=== PATIENT | female | born 2000 | race Caucasian/White ===

== ENCOUNTER 2024-06-07 18:19 | Emergency (ER) | payer OTHER, SELFPAY ==
[2024-06-07] VITALS (12 sets, daily range): BP systolic 92–125; BP diastolic 61–72; PULSE 63–99; RESP 15–27; TEMP 36.7–36.9; O2SAT 98–100; BMI 20.8
--- NOTE | ~2024-06-07 | CT_ITS ---
CLINICAL HISTORY: Thrown off horse CT cervical spine without contrast Comparison: None Findings: There is mild reversal of the normal cervical lordosis. No cervical spondylolisthesis identified. No acute fractures or dislocations. No significant degenerative endplate changes at the cervical spine. Impression: 1. No acute fracture or dislocation injury identified at the cervical spine. This document has been electronically signed by: Zack Jean-Baptiste MD on 06/07/2024 21:30:53
--- NOTE | ~2024-06-07 | CT_ITS ---
CLINICAL HISTORY: thrown off horse CT chest with contrast Comparison: None Findings: Normal heart,size. No significant pericardial effusion. No thoracic aorta aneurysm or dissection identified. Limited evaluation of the aortic root and ascending thoracic aorta related to motion artifact at these sites.. No focal pulmonary consolidation, pneumothorax, or pleural effusion. No acute fractures. Impression: 1. No acute traumatic injury of the chest identified. This document has been electronically signed by: Zack Jean-Baptiste MD on 06/07/2024 21:35:41
--- NOTE | ~2024-06-07 | CT_ITS ---
CLINICAL HISTORY: flew off horse. abdominal pain. CT abdomen and pelvis with contrast Comparison: None Findings: Irregular area of decreased enhancement identified within the spleen, suggesting partial devascularization in the setting of a grade IV splenic injury. A small amount of perisplenic fluid is present. The gallbladder and solid organs are otherwise within normal limits. No hydronephrosis or hydroureter. No bowel obstruction, pneumoperitoneum, or pneumatosis. Small volume free fluid identified at the lower abdomen. Pelvic contents unremarkable. No bladder wall thickening. Normal appendix. No acute fracture visualized. IMPRESSION: 1. Findings suggesting a grade IV splenic injury with small volume free fluid intra-abdominally, most prominent at the lower abdomen. This is most consistent with blood given the splenic injury. This document has been electronically signed by: Zack Jean-Baptiste MD on 06/07/2024 21:06:52
--- NOTE | ~2024-06-07 | CT_ITS ---
CLINICAL HISTORY: thrown off horse CT head without contrast Comparison: None Findings: No intracranial mass, midline shift, hydrocephalus, or acute hemorrhage. Visualized paranasal sinuses and mastoid air cells appear clear. No acute skull fracture. Impression: 1. No acute intracranial abnormality. No acute intracranial hemorrhage. This document has been electronically signed by: Zack Jean-Baptiste MD on 06/07/2024 21:27:37
--- NOTE | 2024-06-07 18:48 | ED_ITS ---
HPI - General Adult General Chief complaint: Trauma Stated complaint: abd pain/fell of horse Time Seen by Provider: 06/07/24 19:45 Source: patient Mode of arrival: ambulatory Limitations: no limitations History of Present Illness ED Provider: HPI narrative: Patient fell off the horse while riding at 17:30 landed on her stomach during the helmet denied any head injury complaining of pain in left upper abdomen and lower abdomen no nausea no vomiting not on any blood thinner no loss of consciousness blood pressure on arrival 92/61 heart rate of 63 repeat blood pressure 106/63 heart rate 78 Related Data Allergies Allergy/AdvReac Type Severity Reaction Status Date / Time No Known Allergies Allergy Verified 06/07/24 18:48 Review of Systems 2 Review of Systems: Yes all other systems are reviewed and are negative [facility] Past Medical History Medical History (Updated 06/08/24 @ 00:00 by Padmini Leahy) Depression Social History Social History Advance Directives: No Advance Directives Information Provided: No Do you have a plan to hurt others: No Plan Physical Exam ED Vital Signs: Vital Signs - 24 hr 06/07/24 18:45 06/07/24 18:50 06/07/24 19:13 Temperature 98.5 F Pulse Rate 63 78 78 Respiratory Rate 16 15 16 Blood Pressure 92/61 104/65 106/63 Pulse Oximetry 100 98 Oxygen Delivery Method Room Air Room Air 06/07/24 21:21 06/07/24 21:24 06/07/24 21:30 Temperature Pulse Rate 82 72 Respiratory Rate 18 Blood Pressure 104/65 111/70 Pulse Oximetry 100 Oxygen Delivery Method Room Air Room Air 06/07/24 21:39 06/07/24 21:48 06/07/24 21:55 Temperature 98.1 F 98.2 F Pulse Rate 79 88 84 Respiratory Rate 24 H 17 22 H Blood Pressure 107/65 107/65 121/72 Pulse Oximetry Oxygen Delivery Method 06/07/24 21:59 06/07/24 22:11 06/07/24 22:34 Temperature 98.2 F Pulse Rate 79 99 99 Respiratory Rate 27 H 20 20 Blood Pressure 113/66 125/64 125/64 Pulse Oximetry 98 Oxygen Delivery Method Room Air BMI result Body Mass Index 20.8 Appearance: Alert. Oriented X3. No acute distress. Eyes: PERRLA, No Nystagmus ENT: Pharynx normal. Oral Mucosa moist Neck: Normal inspection. Neck supple. No midline tenderness slight tenderness in the left sternocleidomastoid muscle CVS: Normal heart rate and rhythm. Pulses normal. Respiratory: No respiratory distress. Equal air entry bilateral, no wheezing/rales/rhonchi Abdomen: Soft and tenderness left upper quadrant Bowel sounds are present, no mass palpable, no CVA tenderness Skin: Skin warm and dry. Normal skin color. Normal skin turgor. Extremities: No lower extremity edema. No calf tenderness Neuro: Oriented X 3. No motor deficit. No sensory deficit.No cerebellar signs , cranial nerves II-XII intact Course Course Course Narrative: RME: 23 yold female presents to the ED for abaominal pain. Patient was thrown off the horse and landed immeidatley on her stomach and since than has had pain. patient looks paler than usual as per firend. patient had seatbelt on. Patient brought in to the ED. trauma Scans ordered. Medications Administered Discontinued Medications Generic Name Dose Route Start Last Admin Trade Name Freq PRN Reason Stop Dose Admin Sodium Chloride 1,000 mls @ 999 mls/hr 06/07/24 21:20 06/07/24 21:24 Ns IV 06/07/24 22:20 999 mls/hr .Q1H1M ONE Administration Iohexol 85 ml 06/07/24 20:02 06/07/24 20:02 Iohexol 350 Mg/Ml 100 Ml Infus..Btl IV 06/07/24 20:03 85 ml ONCE ONE Administration Procedures FAST Exam FAST Exam 1: Fluid in Morison's pouch: No Fluid in Splenorenal Junction: Yes Fluid around bladder, Transverse view: Yes Fluid around bladder, Sagittal view: Yes Fluid in Pericardial Sac: No Gross Wall Motion Abnormality: No Study normal for this patient: No Medical Decision Making Medical Decision Making MDM Narrative: Patient is status post fall from the horse with mainly the abdominal injury CT scan of the abdomen done which showed grade 4 splenic injury will small volume free fluid in the pelvis area [address] Calderón trauma center [facility] accepted the patient for trauma transfer 2123 blood pressure 104/65 heart rate 82 saturating 100% at room air infusing 1 L of normal saline will get 1 unit of PRBC emergency transfusion Differential Diagnosis Differential Diagnoses: The differential diagnosis associated with the presentation includes Admission/Observation Consideration of admission/observation: Escalation of care including admission/observation considered Lab Data MDM Lab Attestation statement: I reviewed the patient's lab results. 06/07/24 19:06 06/07/24 19:06 Labs: Lab Results 06/07/24 06/07/24 Range/Units 19:06 21:52 WBC 11.1 H (4.8-10.8) X10*3/uL RBC 4.32 (4.20-5.50) X10*6/uL Hgb 12.5 (12.0-16.0) g/dl Hct 36.7 L (37.0-47.0) % MCV 85.0 (80.0-98.0) fL MCH 28.9 (27.0-33.0) pg MCHC 34.1 (31.0-35.0) g/dl RDW 13.0 (11.0-16.0) % Plt Count 251 (160-400) X10*3/uL MPV 9.1 L (9.4-12.3) fL Immature Gran % (Auto) 0.4 (0.0-0.4) % Neut % (Auto) 71.9 (45-73) % Lymph % (Auto) 19.2 L (20-40) % [place] % (Auto) 7.5 (2-11) % Eos % (Auto) 0.6 (0-4) % Baso % (Auto) 0.4 (0-2) % Lymph # (Auto) 2.1 (1.2-4.9) X10*3/uL [place] # (Auto) 0.8 (0.1-1.2) X10*3/uL Eos # (Auto) 0.1 (0.0-0.4) X10*3/uL Baso # (Auto) 0.0 (0.0-0.2) X10*3/uL Abs Immat Gran (auto) 0.04 H (0.00-0.03) X10*3/uL Absolute Neuts (auto) 8.0 (2.0-8.3) x10*3/uL Absolute Nucleated RBC 0.000 (0.0-0.012) X10*3/uL Nucleated RBC % (auto) 0.0 (0.0-0.2) /100WBC Sodium 142 (135-145) mmol/L Potassium 4.3 (3.3-5.1) mmol/L Chloride 109 H (96-108) mmol/L Carbon Dioxide 24 (22-29) mmol/L Anion Gap 13 (12-20) BUN 12 (9-16) mg/dL Creatinine 0.77 (0.5-1.4) mg/dL Estim Creat Clear Calc 102.5 Estimated GFR > 60 Random Glucose 121 H (60-115) mg/dL Calcium 9.4 (8.4-10.2) mg/dL Total Bilirubin 0.5 (0.0-1.0) mg/dL AST 34 H (5-31) U/L ALT 17 (0-31) U/L Alkaline Phosphatase 54 (39-117) U/L Total Protein 7.5 (6.5-8.0) g/dL Albumin 4.5 (3.5-5.0) g/dL Beta HCG, Quant < 2 mIU/mL Blood Type O Positive Antibody Screen NEGATIVE Crossmatch See Detail Independent Interpretation I performed an independent interpretation of an: CT Scan Radiology Impression Discussion of test interpretation with radiology: I have reviewed the radiologist's reading. Radiologist Impression: [place] [id number] CT Scan Report Signed with Sravan Patient: Jessica Madrid MR#: [id number] : 2000 Acct:[id number] Age/Sex: 23 / F ADM Date: 06/07/24 Loc: .ED Attending Dr: Ordering Physician: Jhon Forde Date of Service: 06/07/24 Procedure(s): CT abdomen pelvis w IV con Accession Number(s): [id number] cc: Jhon Forde; Physician,Unknown ~ Report Number: [id number]: Total DLP = 646.71 mGy-cm ADDENDUMThis document has been electronically signed by: Zack Jean-Baptiste MD on 06/07/2024 21:06:52 ADDENDUM: This report was discussed with Dr. Dai on Jun 07, 2024 21:10:00 EDT. This document has been electronically signed by: LinasohailBirgit on 06/07/2024 21:10:50 Addendum Dictated By: Zack Jean-Baptiste MD Addendum Signed By: <Electronically signed by Zack Jean-Baptiste MD in [place]> 06/07/242111 Addendum Cosigned By: DD/ /24/2105 TD/TT: 06/07/2409/24/2109 CLINICAL HISTORY: flew off horse. abdominal pain. CT abdomen and pelvis with contrast Comparison: None Findings: Irregular area of decreased enhancement identified within the spleen, suggesting partial devascularization in the setting of a grade IV splenic injury. A small amount of perisplenic fluid is present. The gallbladder and solid organs are otherwise within normal limits. No hydronephrosis or hydroureter. No bowel obstruction, pneumoperitoneum, or pneumatosis. Small volume free fluid identified at the lower abdomen. Pelvic contents unremarkable. No bladder wall thickening. Normal appendix. No acute fracture visualized. IMPRESSION: 1. Findings suggesting a grade IV splenic injury with small volume free fluid intra-abdominally, most prominent at the lower abdomen. This is most consistent with blood given the splenic injury. This document has been electronically signed by: Zack Jean-Baptiste MD on 06/07/2024 21:06:52 Findings: No intracranial mass, midline shift, hydrocephalus, or acute hemorrhage. Visualized paranasal sinuses and mastoid air cells appear clear. No acute skull fracture. Impression: 1. No acute intracranial abnormality. No acute intracranial hemorrhage. This document has been electronically signed by: Zack Jean-Baptiste MD on 06/07/2024 21:27:[address] [address] [address] Scan Report Signed Patient: Jessica Madrid MR#: [id number] : 2000 Acct:[id number] Age/Sex: 23 / F ADM Date: 06/07/24 Loc: HO.ED Attending Dr: Ordering Physician: Jhon Forde Date of Service: 06/07/24 Procedure(s): CT cervical spine wo IV con Accession Number(s): [id number] cc: Jhon Forde; Physician,Unknown ~ Report Number: [id number]: Total DLP = 424.50 mGy-cm CLINICAL HISTORY: Thrown off horse CT cervical spine without contrast Comparison: None Findings: There is mild reversal of the normal cervical lordosis. No cervical spondylolisthesis identified. No acute fractures or dislocations. No significant degenerative endplate changes at the cervical spine. Impression: 1. No acute fracture or dislocation injury identified at the cervical spine. This document has been electronically signed by: Zack Jean-Baptiste MD on 06/07/2024 21:30:[address] [address] [address] Scan Report Signed Patient: Jessica Madrid MR#: [id number] : 2000 Acct:[id number] Age/Sex: 23 / F ADM Date: 06/07/24 Loc: HO.ED Attending Dr: Ordering Physician: Jhon Forde Date of Service: 06/07/24 Procedure(s): CT chest w IV con Accession Number(s): [id number] cc: Jhon Forde; Physician,Unknown ~ Report Number: [id number]: Total DLP = 337.81 mGy-cm CLINICAL HISTORY: thrown off horse CT chest with contrast Comparison: None Findings: Normal heart,size. No significant pericardial effusion. No thoracic aorta aneurysm or dissection identified. Limited evaluation of the aortic root and ascending thoracic aorta related to motion artifact at these sites.. No focal pulmonary consolidation, pneumothorax, or pleural effusion. No acute fractures. Impression: 1. No acute traumatic injury of the chest identified. This document has been electronically signed by: Zack Jean-Baptiste MD on 06/07/2024 21:35:41 Critical Care Time Critical Care Time Critical Care Time: Yes Total Critical Care Time: 55 Attestation: The patient was critically ill with a high probability of imminent or life threatening deterioration. I spent greater than ?60??minutes of discontinuous time evaluating the patient,delivering critical care at the bedside, discussing and evaluating pertinent data with consultants. Critical care time does not include time spent performing separately billable procedures or teaching. Total time spent performing critical care was ?55??minutes. Discharge Plan Discharge Clinical Impression: Laceration of spleen Patient Disposition: [facility] Transfer Details: [facility] Trauma Dr. Calderón Interventions: Acute Care Transfer Worksheet (ED) Last Done: 06/07/24 22:34 Discharge Date/Time: 06/07/24 22:35 Print Language: Armenian
[2024-06-07 19:08] LABS: MANUAL DIFF FLAG NO
[2024-06-07 19:10] LABS: Basophils Percent Auto 0.4 % (0-2); Eosinophils Absolute Auto 0.1 X10*3/uL (0.0-0.4); Eosinophils Percent Auto 0.6 % (0-4); Hematocrit 36.7 % (37.0-47.0); Hemoglobin 12.5 g/dl (12.0-16.0); Imm Gran Abs Auto 0.04 X10*3/uL (0.00-0.03); Imm Gran Pct Auto 0.4 % (0.0-0.4); Lymphocytes Absolute Auto 2.1 X10*3/uL (1.2-4.9); Lymphocytes Percent Auto 19.2 % (20-40); Mean Corpuscular HGB Conc 34.1 g/dl (31.0-35.0); Mean Corpuscular Hemoglobin 28.9 pg (27.0-33.0); Mean Platelet Volume 9.1 fL (9.4-12.3); Monocytes Absolute Auto 0.8 X10*3/uL (0.1-1.2); Monocytes Percent Auto 7.5 % (2-11); Neutrophils Percent Auto 71.9 % (45-73); Platelet Count 251 X10*3/uL (160-400); Red Blood Count 4.32 X10*6/uL (4.20-5.50); White Blood Count 11.1 X10*3/uL (4.8-10.8)
--- OUTSIDE RECORDS SUMMARY | 2024-06-07 19:20 | XMS_ITS | Data Portability ---
Author Organization [place] - .[facility], [facility] Address [address] [place] [address] Care Team Providers Care Case Operator Name Role Phone NELIDA SHEN Primary Care Provider NYASIA VELA Marriage And Family Teacher [phone] Assessment Encounter Date Assessment Date Assessment LastModified by Organization Details LastModified Time 07/23/2021 07/23/2021 Patient with ectatic vessel right septum cauterized today. She did become mildly vasovagal but did not pass out. She will start saline nasal gel. She was also given samples of bleed cease. She will follow-up if the bleeding continues. PLEASE NOTE: This report was generated with voice recognition software. As a result there is the possibility of typographical or content errors. These can be simple errors, such as a misspelling of a word or name, however on occasion the errors may change the meaning of a sentence or the conclusions of the report. Every effort is made to detect these errors, including proof reading, but errors may be present in the final version of this report.* [email or web address] Not available 07/23/2021 16:18:06 07/25/2021 07/25/2021 Patient with lower lid blepharitis after nasal cauterization. I placed her on bacitracin ointment recommend warm compresses as well. She understands that should the blepharitis worsen she will need to see Ophthalmology. PLEASE NOTE: This report was generated with voice recognition software. As a result there is the possibility of typographical or content errors. These can be simple errors, such as a misspelling of a word or name, however on occasion the errors may change the meaning of a sentence or the conclusions of the report. Every effort is made to detect these errors, including proof reading, but errors may be present in the final version of this report.* [email or web address] Not available 07/25/2021 15:03:49 Plan of Treatment Reminders Order Date Submit Date Provider Last Modified By Organization Details Last Modified Time Details Appointments None recorded. Lab lipid panel, serum 2020 021 [facility], [address] [place] [address], [id number], 22:43:31 CBC w/ auto diff 2020 021 [facility], [address] [place] [address], [address], 21:01:43 vitamin D, 25-hydroxy, total, serum 2020 021 [facility], [address] [place] [address], [id number], 22:22:06 TSH, serum or plasma 2020 021 [facility], [address] [place] [address], [address], 22:43:33 Referral gynecologis t referral 2020 021 [email or web address] Not available 19:24:58 Procedures None recorded. Surgeries None recorded. Imaging None recorded. Medication Orders bacitracin 500 unit/gram eye ointment 2021 023 [facility], [address] [place] [address], [address], 3 13:16:34 Patient TargetsNo targets recorded. Patient Instructions Encounter Date Encounter Id Patient Instructions Last Modified By Organization Details Last Modified Time 05/11/2019 [id number] hearing screening* Not availa ble 05/11/2019 18:42:10 visual acuity* Not available 0 05/11/2019 18:42:10 [facility] parent handout 15 to 17 year visits Not available 05/11/2019 18:42:10 How to Help Your Child Be More Physically Active [email or web address] Not available 05/11/2019 18:42:10 Following the [employer] Food Guide for Children: Care Instructions Not available 05/11/2019 18:42:10 child safety: ca re instructions Not available 05/11/2019 18:42:10 -Continue to eat 3 well balanced meals a day. In addition, strive to take in 3-4 servings of Dairy a day. If this is not possible then a supplement with Calcium/Vitamin D may be needed. Your goal should be a total daily intake of Calcium of 1300 mg/day. - Incorporate exercise at least 3-4 times a week for at least 60 minutes. This does not have to be consecutive but may be broken up throughout the day. - Maintain healthy supportive relationships with family and friends. Avoid risk taking behaviors. Use bike helmets consistently, check yourself for ticks every night, use sunscreen and insect repellent. Do not engage in bullying and report bullying to a trusted adult. Consider involvement in the community/voluntee r groups to promote social responsibility and advocacy of others. Strive to continue family activities, as a strong family unit is protective against school dropout, mental health and good quality of life in adolescence. Be careful with online/social media use, which should be closely monitored by parents. Do not sleep with your phone in your bedroom, as this increases use of your phone and decreases the amount and quality of your sleep. Keep private things private, and be careful with postings to social media. Parents: Monitor for signs of social isolation, loss of friends or secretive behaviors, as mental illness is high in adolescence and early intervention is often the pabon to successful treatment. Please review the adolescent well visit handout under learning materials in the tasks and tools section of the patient portal. Call or portal-message our office with any questions or concerns. We are more than happy to continue your care until you are 21 years old and/or have completed college. Not available 05/11/2019 16:49:38 -Anticipatory guidance and health education topics discussed. -Immunizations reviewed and updated during the visit. Risks and benefits of vaccines discussed and current Vaccine Information Sheet provided. -Advised to schedule a yearly exam and encouraged to call the office or send a portal message with any questions or concerns that arise. - Not available 05/11/2019 16:49:46 08/31/2020 [id number] visual acuity* Not available 08/31/2020 13:36:19 hearing screening* Not availab le 08/31/2020 13:36:19 [facility] patient handout 18 to 21 year visits Not available 08/31/2020 13:36:20 -Continue to eat 3 well balanced meals a day. In addition, strive to take in 3-4 servings of Dairy a day. If this is not possible then a supplement with Calcium/Vitamin D may be needed. Your goal should be a total daily intake of Calcium of 1300 mg/day. - Incorporate exercise at least 3-4 times a week for at least 60 minutes. This does not have to be consecutive but may be broken up throughout the day. - Maintain healthy supportive relationships with family and friends. Avoid risk taking behaviors. Use bike helmets consistently, check yourself for ticks every night, use sunscreen and insect repellent. Do not engage in bullying and report bullying to a trusted adult. Consider involvement in the community/voluntee r groups to promote social responsibility and advocacy of others. Strive to continue family activities, as a strong family unit is protective against school dropout, mental health and good quality of life in adolescence. Be careful with online/social media use, which should be closely monitored by parents. Do not sleep with your phone in your bedroom, as this increases use of your phone and decreases the amount and quality of your sleep. Keep private things private, and be careful with postings to social media. Parents: Monitor for signs of social isolation, loss of friends or secretive behaviors, as mental illness is high in adolescence and early intervention is often the pabon to successful treatment. Please review the adolescent well visit handout under learning materials in the tasks and tools section of the patient portal. Call or portal-message our office with any questions or concerns. We are more than happy to continue your care until you are 21 years old and/or have completed college. [email or web address] Not available 08/31/2020 11:11:56 -Anticipatory guidance and health education topics discussed. -Immunizations reviewed and updated during the visit. Risks and benefits of vaccines discussed and current Vaccine Information Sheet provided. -Advised to schedule a yearly exam and encouraged to call the office or send a portal message with any questions or concerns that arise. patricia Not available 08/31/2020 11:48:46 03/13/2022 [id number] visual acuity* patricia Not available 03/13/2022 13:23:42 hearing screening* patricia Not availab le 03/13/2022 13:23:42 [facility] patient handout 18 to 21 year visits patricia Not available 03/13/2022 13:23:42 -Continue to eat 3 well balanced meals a day. In addition, strive to take in 3-4 servings of Dairy a day. If this is not possible then a supplement with Calcium/Vitamin D may be needed. Your goal should be a total daily intake of Calcium of 1300 mg/day. - Incorporate exercise at least 3-4 times a week for at least 60 minutes. This does not have to be consecutive but may be broken up throughout the day. - Maintain healthy supportive relationships with family and friends. Avoid risk taking behaviors. Use bike helmets consistently, check yourself for ticks every night, use sunscreen and insect repellent. Do not engage in bullying and report bullying to a trusted adult. Consider involvement in the community/voluntee r groups to promote social responsibility and advocacy of others. Strive to continue family activities, as a strong family unit is protective against school dropout, mental health and good quality of life in adolescence. Be careful with online/social media use, which should be closely monitored by parents. Do not sleep with your phone in your bedroom, as this increases use of your phone and decreases the amount and quality of your sleep. Keep private things private, and be careful with postings to social media. Parents: Monitor for signs of social isolation, loss of friends or secretive behaviors, as mental illness is high in adolescence and early intervention is often the pabon to successful treatment. Please review the adolescent well visit handout under learning materials in the tasks and tools section of the patient portal. Call or portal-message our office with any questions or concerns. We are more than happy to continue your care until you are 21 years old and/or have completed college. [email or web address] Not available 03/13/2022 12:44:11 -Anticipatory guidance and health education topics discussed. -Immunizations reviewed and up to date. Advised bivalent COVID19 booster. -Advised to schedule a yearly exam and encouraged to call the office or send a portal message with any questions or concerns that arise. Not available 03/13/2022 13:21:43 Reason for Referral Recreation Leader Referral for Ad ult health examination Referring Physician: Nelida Shen, Pediatric Medicine, Encounter Date: 08/31/2020 Results Created Date Observation Date Name Description Value Unit Range Abnormal Flag Note LastModifiedBy Organization Detail LastModifiedTime 09/01/19 21 08/31/2020 heari ng scree jessica* Unknown Analyte normal Not Available [facility] [address] [address] [place], [address], 08/31/2020 11:11:59 09/01/19 21 08/31/2020 heari ng scree jessica* Unknown Analyte normal Not Available [place] [address] [address] [place], [address], 08/31/2020 11:11:59 09/01/19 21 08/31/2020 heari ng scree jessica* Unknown Analyte normal Not Available [facility] [address] [address] [place], [address], 08/31/2020 11:11:59 09/01/19 21 08/31/2020 heari ng scree jessica* Unknown Analyte normal Not Available [place] [address] [address] [place], [address], 08/31/2020 11:11:59 09/01/19 21 08/31/2020 heari ng scree jessica* Unknown Analyte normal Not Available [place] [address] [address] [place], [address], 08/31/2020 11:11:59 09/01/19 21 08/31/2020 heari ng scree jessica* Unknown Analyte normal Not Available [facility] [address] [address] [place], [address], 08/31/2020 11:11:59 09/01/19 21 08/31/2020 heari ng scree jessica* Unknown Analyte normal Not Available [place] [address] [address] [place], [address], 08/31/2020 11:11:59 09/01/19 21 08/31/2020 heari ng scree jessica* Unknown Analyte normal Not Available [facility] [address] [address] [place] [address], [address], 08/31/2020 11:11:59 05/11/19 20 05/11/2019 visua l acuit y* R Eye Uncorrected Not Available [place] [facility] [address] [place] [address], [address], 05/11/2019 16:35:30 05/11/19 20 05/11/2019 visua l acuit y* L Eye Uncorrected 12. 5 Not Available [facility] [address] [place], [address], 05/11/2019 16:35:30 05/11/19 20 05/11/2019 heari ng scree jessica* Unknown Analyte normal Not Available [facility] [address] [address] [place], [address], 05/11/2019 16:35:29 05/11/19 20 05/11/2019 heari ng scree jessica* Unknown Analyte normal Not Available [facility] [address] [place] [address], [address], 05/11/2019 16:35:29 05/11/19 20 05/11/2019 heari ng scree jessica* Unknown Analyte normal Not Available [facility] [address] [place] [address], [address], 05/11/2019 16:35:29 05/11/19 20 05/11/2019 heari ng scree jessica* Unknown Analyte normal Not Available [facility] [address] [address] [place] [address], [address], 05/11/2019 16:35:29 05/11/19 20 05/11/2019 heari ng scree jessica* Unknown Analyte normal Not Available [place] [address], [address], 05/11/2019 16:35:29 05/11/19 20 05/11/2019 heari ng scree jessica* Unknown Analyte normal Not Available [place] [address] [place] [address], [address], 05/11/2019 16:35:29 05/11/19 20 05/11/2019 heari ng scree jessica* Unknown Analyte normal Not Available [place] [address] [place] [address], [address], 05/11/2019 16:35:29 05/11/19 20 05/11/2019 heari ng scree jessica* Unknown Analyte normal Not Available [facility] [address] [address] [place] [address], [address], 05/11/2019 16:35:29 10/11/19 21 10/10/2020 CBC white blood cells 5.3 10^3/ uL 3.3-9. 4 Not Available [facility] [address], [place], [address], 10/10/2020 21:01:43 10/11/19 21 10/10/2020 CBC red blood cells 4.37 10^6/ uL 3.87-5 .15 Not Available [facility] [address], [place], [address], 10/10/2020 21:01:43 10/11/19 21 10/10/2020 CBC hemoglobin 12.6 g/dL 11.1-1 5.0 Not Available [facility] [address] [place], [address], 10/10/2020 21:01:43 10/11/19 21 10/10/2020 CBC hematocrit 39.0 % 34.1-4 4.7 Not Available [facility] [place], [address], 10/10/2020 21:01:43 10/11/19 21 10/10/2020 CBC platelet count 233 10^3/ uL 158-38 4 Not Available [facility] [place], [address], 10/10/2020 21:01:43 10/11/19 21 10/10/2020 CBC MCV 89 fL 76-98 Not Available [facility] [place], [address], 10/10/2020 21:01:43 10/11/19 21 10/10/2020 CBC MCH 28.8 pg 23.5-3 2.8 Not Available [facility] [place] [place], [address], 10/10/2020 21:01:43 10/11/19 21 10/10/2020 CBC MCHC 32.3 g/dL 31.4-3 5.2 Not Available [facility] [place], [address], 10/10/2020 21:01:43 10/11/19 21 10/10/2020 CBC RDW-CV 13.1 % 12.1-1 5.9 Not Available [facility] [address] [place] [address], [address], 10/10/2020 21:01:43 10/11/19 21 10/10/2020 CBC neutro-segs % 41.0 % 37.0-7 3.0 Not Available [facility] [address] [place] [address], [address], 10/10/2020 21:01:43 10/11/19 21 10/10/2020 CBC lymphocytes% 46.7 % 18.0-5 1.0 Not Available [facility] [address] [place] [address], [address], 10/10/2020 21:01:43 10/11/19 21 10/10/2020 CBC monocytes% 9.0 % 4.0-12 .0 Not Available [facility] [address] [place] [address], [address], 10/10/2020 21:01:43 10/11/19 21 10/10/2020 CBC eosinophils % 2.3 % 1.0-9. 0 Not Available [facility] [address] [place] [address], [address], 10/10/2020 21:01:43 10/11/19 21 10/10/2020 CBC basophils 0.6 % 0.0-1. 0 Not Available [facility] [address] [place] [address], [address], 10/10/2020 21:01:43 10/11/19 21 10/10/2020 CBC neutrophil, absolute 2.16 10^3/ uL 1.43-6 .19 Not Available [facility] [address] [place] [address], [address], 10/10/2020 21:01:43 10/11/19 21 10/10/2020 CBC lymphocytes, absolute 2.45 10^3/ uL 1.02-3 .25 Not Available [facility] [address] [place] [address], [address], 10/10/2020 21:01:43 10/11/19 21 10/10/2020 CBC monocytes, absolute 0.47 10^3/ uL 0.23-0 .76 Not Available [facility] [address] [place] [address], [address], 10/10/2020 21:01:43 10/11/19 21 10/10/2020 CBC eosinophils, absolute 0.12 10^3/ uL 0.03-0 .51 Not Available [facility] [address] [place] [address], [address], 10/10/2020 21:01:43 10/11/19 21 10/10/2020 CBC basophils, absolute 0.03 10^3/ uL 0.01-0 .08 Not Available [facility] [address] [place] [address], [address], 10/10/2020 21:01:43 10/11/19 21 10/10/2020 VITAM IN D 25-HY DROXY vitamin D 28.1 NG/mL 30.0-1 00.0 low Not Available [facility] [address] [place] [address], [address], 10/10/2020 22:22:06 10/11/19 21 10/10/2020 LIPID PANEL cholesterol 177 mg/dL <199 Expec evelia Value s: <200 mg/dL Charmaine eable 200-2 40 mg/dL Borde rline >240 mg/dL High Risk Not Available [facility] [address] [place] [address], [address], 10/10/2020 22:43:31 10/11/19 21 10/10/2020 LIPID PANEL HDLC 69 mg/dL 40-59 high A HDL level of >=60 mg/dL is consi dered prote ctive again st heart disea se and count s as a nega tive risk facto r. Its prese nce remov es one risk facto r from the total count . Not Available [facility] [address] [place], [address], 10/10/2020 22:43:31 10/11/19 21 10/10/2020 LIPID PANEL triglyceride 53 mg/dL <149 Expec evelia Value s: <150 mg/dL Lesly l 150-1 99 mg/dL Borde rline 200-4 99 mg/dL High >=500 mg/dL Very High Not Available [facility] [address] [place], [address], 10/10/2020 22:43:31 10/11/19 21 10/10/2020 LIPID PANEL calculated LDL 97 mg/dL <130 Not Available [place] [address] [place], [address], 10/10/2020 22:43:31 10/11/19 21 10/10/2020 LIPID PANEL non-HDL 108.0 mg/dL Not Available [facility] [place], [address], 10/10/2020 22:43:31 10/11/19 21 10/10/2020 LIPID PANEL cholesterol/ HDL ratio 2.57 ratio Not Available [facility] [address] [place], [address], 10/10/2020 22:43:31 10/11/19 21 10/10/2020 LIPID PANEL LDL/HDL ratio 1.41 ratio Not Available [facility] [address] [place], [address], 10/10/2020 22:43:31 10/11/19 21 10/10/2020 TSH REFLE X FT4 TSH - reflex to FT4 1.210 uIU/m L 0.459- 4.229 Not Available [facility] [place], [address], 10/10/2020 22:43:33 03/13/19 23 03/13/2022 heari ng scree jessica* Unknown Analyte normal Not Available [facility] [address], [address], 03/13/2022 12:44:13 03/13/19 23 03/13/2022 heari ng scree jessica* Unknown Analyte normal Not Available [place] [address], [address], 03/13/2022 12:44:13 03/13/1903/13/2022 heari ng scree jessica* Unknown Analyte normal Not Available [place] [address], [address], 03/13/2022 12:44:13 03/13/19 23 03/13/2022 heari ng scree jessica* Unknown Analyte normal Not Available [place] [address], [address], 03/13/2022 12:44:13 03/13/19 23 03/13/2022 heari ng scree jessica* Unknown Analyte normal Not Available [facility] [place] [address], [address], 03/13/2022 12:44:13 03/13/19 23 03/13/2022 heari ng scree jessica* Unknown Analyte normal Not Available [place] [address], [address], 03/13/2022 12:44:13 03/13/19 23 03/13/2022 heari ng scree jessica* Unknown Analyte normal Not Available [place] [address], [address], 03/13/2022 12:44:13 03/13/19 23 03/13/2022 mirella lopez* Unknown Analyte normal Not Available [facility] [address] [place], [address], 03/13/2022 12:44:13 Result Notes None recorded. Problems Name Problem SNOMED Code Status Onset Date Resolution Date Notes Provider Name and Address Organization Details Recorded Time Injury of ankle 031471399 Completed 04/04/2015 Nelida Shen MD [address] [place], [place], [address] [place] [address], [facility] - .[facility] 6 15:15:53 Fracture of fibula 35588252 Completed 04/04/2016 Rt, 03/26/15 Nelida Shen MD [address] [place], [place], [address] [place] [address], [facility] - .[facility] 7 13:31:24 Vitamin D deficien cy 51004778 Completed 05/11/2019 Level 21.9 on 04/12/15; advised vit D 2000IU Nelida Shen MD [address] [place], [place], [address] [place] [address], [facility] - .[facility] 0 16:36:42 Seasonal allergy 023643676 Completed 08/31/2020 Nelida Shen MD [address] [place], [address] [place] [address], [facility] - .[facility] 11:44:56 Cervical lymphade nitis 0986886 Completed 201504/04/2016 Nelida Shen MD [address] [place], [place], [address] [place] [address], [facility] - .[facility] 7 13:31:14 Myopia 63118509 Completed 201604/04/2016 Nelida Shen MD [address] [place], [address] [place] [address], [place] - .[facility] 7 09:57:31 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 Nelida Shen MD [address] [place], [place], [address] [place] [address] 4, [place] .[facility] 8 16:52:15 Hypermet ropia 25315466 Active [address] Pruitt ; has glasses Nelida Shen MD [address] [place], [address] [place] [address] 4, [place] [facility] 3 13:23:38 Irritabl e bowel syndrome 56393079 Completed 201604/09/[address] Tony Hernandez GI in [facility] d with [facility] 05/08/2016- ? eosinophi lic esophagit is/ ? GERD Nelida Shen MD [address] [place], [address], [place] 8 16:52:18 Concussi on injury of brain 952143642 Completed 201611/11/2017 Nelida Shen MD [address] [place], [address], [place] [facility] 0 16:35:55 Concussi on injury of brain 637662681 Completed 201705/11/[address] Elmore and will be followed at [facility] concussio n clinic Nelida Shen MD [address] [place], [address], [place] - .[facility] 0 16:35:55 Anxiety 56104137 Completed 08/31/2020 eNlida Shen MD [address] [place], [address], [place] [facility] 11:46:30 Viral syndrome 386261638 Completed 04/04/2015 Nelida Shen MD [address] [place], [address], [place] [facility] 15:15:53 Acute pharyngi tis 887932529 Completed 04/04/2015 Nelida Shen MD [address] [place], [address] [place] [address] 4, [place] .[facility] 15:15:53 Generali zed anxiety disorder 20201589 Active [address] Andi han and [facility] for therapy; on Sertralin e 150mg Nelida Shen MD 1 [place], [place], [address] [place] [address], [place] - .[facility] 11:46:28 Problem Notes None recorded. Procedures Surgical History Date Name Laterality Status Provider Name and Address Organization Details Recorded Time 07/24/19 22 Control Nasal Hemorrhage, Simple completed Nyasia Vela MD 1 [place], [place], [address] [place] [address], [facility] - .[facility] 07/23/2021 16:16:27 12/10/19 18 SCAT3 Concussion Questionnaire completed Kia Starr APN 1 [place], [place], [address] [place] [address], [facility] - .[facility] 12/09/2017 09:55:40 11/26/19 17 Concussion Questionnaire completed Nelida Shen MD 1 [place], [address], [facility] - .[facility] 11/25/2016 16:43:07 11/20/19 17 Concussion Questionnaire completed Nelida Shen MD 1 [place], [address], [facility] - .[facility] 11/19/2016 17:23:06 Imaging Results None recorded. Procedure Notes None recorded. Medical Equipment None Reported. Allergies No known drug allergies Medications Name Sig Start Date Stop Date Status Note LastModified by Organization Details LastModified Time bacitracin 500 unit/gram eye ointment Apply 0.24-0.5 inch to right eye 4 times a day for 7 days 03/13 completed Not Available Not Available Not Available sertraline 100 mg tablet TAKE 1 AND 1/2 TABLETS DAILY active Not Available Not Available No t Available hyoscyamine sulfate 0.125 mg tablet 04/09 completed Not Available Not Available Not Available tobramycin 0.3 % eye drops INSTILL 2 DROPS IN THE RIGHT EYE EVERY FOUR HOURS WHILE AWAKE FOR 7 DAYS 03/13 completed Not Available Not Available Not Available sertraline 25 mg tablet 05/10 completed Not Available Not Available Not Available hydroxyzine HCl 25 mg tablet 04/04 completed Not Available Not Available Not Available sertraline 50 mg tablet Take 1 tablet every day by oral route. active Not Available Not Available No t Available amoxicillin 875 mg-potassiu m clavulanate 125 mg tablet Take 1 tablet twice a day by oral route for 14 days. 04/04 completed Not Available Not Available Not Available hydroxyzine pamoate 25 mg capsule 04/04 completed Not Available Not Available Not Available Vitamin D3 50 mcg (2,000 unit) capsule Take 1 capsule every day by oral route as directed. 05/10 completed Not Available Not Available Not Available Vitamin D3 100 mcg (4,000 unit) capsule Take 1 capsule 3 times a day by oral route for 90 days. 04/09 completed Not Available Not Available Not Available Flowflex COVID-19 Antigen Home Test kit USE DIRECTED 03/13 completed Not Available Not Available Not Available Vitals Date Recorded Body height Body mass index (BMI) Body mass index (BMI) Percentile per age and sex Body weight Heart rate Systolic blood pressure Diastolic blood pressure Provider Name and Address Organization Details Last Updated DateTime 2 165.1 cm 19.1 kg/m2 17 % 55954.1 2 g 54 /min 101 mm[Hg] 65 mm[Hg] Raudel LARSON - .[facility] 2 15:01:54 Date Recorded Body height Body mass index (BMI) Body mass index (BMI) Percentile per age and sex Body weight Heart rate Systolic blood pressure Diastolic blood pressure Provider Name and Address Organization Details Last Updated DateTime 2 165.1 cm 19.1 kg/m2 17 % 84780.1 2 g 75 /min 113 mm[Hg] 70 mm[Hg] Sandeep Adamson [place] - .[facility] 2 14:49:57 Date Recorded Body height Body temperature Heart rate Respiratory rate Body mass index (BMI) Percentile per age and sex Body mass index (BMI) Body weight Systolic blood pressure Diastolic blood pressure Provider Name and Address Organization Details Last Updated DateTime 3 165.1 cm 97.8 [degF] 80 /min 18 /min 41 % 21 kg/m2 12626.6 4 g 108 mm[Hg] 64 mm[Hg] Jacquelyn Mendoza [place] - .[facility] 3 12:49:03 Date Recorded Body weight Body mass index (BMI) Percentile per age and sex Body mass index (BMI) Body height Body temperature Heart rate Respiratory rate Systolic blood pressure Diastolic blood pressure Provider Name and Address Organization Details Last Updated DateTime 0 08162.1 6 g 13 % 18.3 kg/m2 165.1 cm 98.3 [degF] 72 /min 18 /min 98 mm[Hg] 72 mm[Hg] Zohreh Ellis [place] - .[facility] 0 16:22:25 Date Recorded Body height Body mass index (BMI) Percentile per age and sex Body mass index (BMI) Body weight Body temperature Heart rate Respiratory rate Oxygen saturation Oxygen saturation in Arterial blood by Pulse oximetry Systolic blood pressure Diastolic blood pressure Provider Name and Address Organization Details Last Updated DateTime 1 165.1 cm 30 % 20 kg/m2 28376.0 8 g 97.2 [degF] 88 /min 18 /min 98 % 98 % 110 mm[Hg] 68 mm[Hg] Teresa Guallpa [place] - .[facility] 1 11:12:33 Social History Question Answer Notes LastModified by Organizat ion Details LastModified Time Tobacco Smoking Status Never Smoker MARSHA Navarrete - .[facility] 03/24/2014 14:43:13 Animal Exposure? Yes Dog And 2 Cats Information not available 03/13/2022 Do You Wear A Helmet When Biking? Yes Information not available 03/13/2022 Are You Blind Or Do You Have Difficulty Seeing? No Information not available 03/13/2022 Are You Or Have You Been Involved With Bullying? No Information not available 03/13/2022 What Is Your Level Of Caffeine Consumption? None Information not available 03/13/2022 How Much Tobacco Do You Chew? None Information not available 05/11/2019 Are You Deaf Or Do You Have Serious Difficulty Hearing? No Information not available 03/13/2022 Do You Or Have You Ever Used E-cigarettes Or Vape? Never Used Electronic Cigarettes Information not available 05/11/2019 Are There Any Guns Present In Your Home? No Information not available 03/13/2022 What Is Your Home Situation? Both Parents Information not available 03/13/2022 Where Do You Live? [place] Information not available 03/13/2022 *Gender ID Female Information no t available 04/04/2015 * Gender Female Information not available 04/04/2015 *Sexual Orientation Heterosexual Information not available 05/11/2019 RISK LEVEL - Segmentation Level 5 - High-risk Chronic Dx / Complex Social Needs [email or web address] Information not available 04/21/2022 What Was The Date Of Your Most Recent Tobacco Screening? 03/13/2022 Information not available 03/13/2022 What Is Your Parents' Marital Status? Information not available 03/13/2022 Do You Have Any Pets? Yes 1 Dog, 2 Cats Information not available 03/13/2022 Pool Exposure Yes Informati on not available 03/13/2022 What Is Your Relationship Status? Single Information not available 03/13/2022 Do You Use Your Seat Belt Or Car Seat Routinely? Yes Information not available 03/13/2022 Are You Sexually Active? No Information not available 03/13/2022 Do You Have Any Siblings? Otilio 3 Yrs Younger Brother Information not available 03/13/2022 Do You Have Smoke And Carbon Monoxide Detectors In Your Home? Yes Information not available 03/13/2022 Are You Passively Exposed To Smoke? No Information not available 03/13/2022 Do You Or Have You Ever Used Smokeless Tobacco? Never Used Smokeless Tobacco Information not available 05/11/2019 How Much Tobacco Do You Smoke? No Information not available 04/04/2016 What Types Of Sporting Activities Do You Participate In? Hosreback Riding Information not available 03/13/2022 Do You Use Any Illicit Or Recreational Drugs? No Information not available 03/13/2022 Do You Use Sunscreen Routinely? Yes Information not available 03/13/2022 How Many Years Have You Smoked Tobacco? 0 Information not available 05/11/2019 Year In School College Informatio n not available 03/13/2022 Are You Currently In School? Yes Information not available 03/13/2022 Do You Or Have You Ever Used Any Other Forms Of Tobacco Or Nicotine? No strivette Information not available 07/23/2021 Sex: Female Functional Status Question Answer Note LastModified by Organization D etails LastModified Time What is your exercise level? Moderate Information not available 03/13/2022 Mental Status None recorded. Family History Relationship Description Onset Age of this Age Resolved Age Notes LastModified by Organization Details LastModified Time Mother No current problems or disability Not available 05/10 16:50:56 Maternal Grandmother Malignant tumor of lung 70 89 Not available 2019 16:52:45 Maternal Grandmother Anxiety [email or web address] Not available 0 03/13/2022 12:43:41 Maternal Grandfather Malignant lymphoma 88 [email or web address] Not available 01/2023 12:43:41 Maternal Uncle No current problems or disability [email or web address] Not available 07/03 14:49:27 Maternal Uncle No current problems or disability [email or web address] Not available 07/03 14:49:27 Paternal Grandmother Myocardial infarction [email or web address] Not available 07/03 14:49:27 Paternal Grandfather Rheumatoid arthritis [email or web address] Not available 2015 14:49:27 Brother No current problems or disability 3 yrs Otilio fernandez [email or web address] Not available 07/04/2015 14:49:27 Father Anxiety [email or web address] Not availa ble 03/13/2022 12:43:41 Medical History Condition Response Anxiety/Depression Y Obesity Y Muscle, Joint or Bone Problems Seizures/Epilepsy Y Ear or Hearing Problems Y Neurological Problems Y Gynecological History Statement/Question Response Flow Moderate Date of LMP 03/10/2022 STIs/STDs N HPV Vaccine N Duration of Flow (days) 5 Age at Menarche Current Control Method None Notes Mild cramps Frequency of Cycle (Q days) 30 Sexually Active? N Menses Monthly Y Obstetrics History GPAL:G 0 P 0 0 0 0 Immunizations Vaccine Type Date Status Note Provider Nam e and Address Organization Details Recorded Time Influenza, split virus, quadrivalent, PF 0 completed MARSHA Bello - .[facility] 04/14/2019 16:17:25 meningococcal B, recombinant 0 completed Karen Shin RN [facility] [place] - .[facility] 05/12/2019 12:37:13 meningococcal MCV4P 0 completed Karen Shin RN [facility] [place] - .[facility] 05/12/2019 12:37:14 Hep A, ped/adol, 2 dose 7 completed Not Available [facility] 10/21/2013 12:21:55 Hep A, ped/adol, 2 dose 8 completed Not Available [facility] 10/21/2013 12:21:55 Hep A, ped/adol, 2 dose 9 completed Not Available [facility] 10/21/2013 12:21:55 Hib (HbOC) 3 completed Not Available [facility] 10/21/2013 12:21:55 Hib (HbOC) 3 completed Not Available [facility] 10/21/2013 12:21:55 Hib (HbOC) 3 completed Not Available [facility] 10/21/2013 12:21:55 Influenza, split virus, trivalent, PF 6 completed Not Available [facility] 10/21/2013 12:21:55 Influenza, split virus, trivalent, PF 1 completed Not Available [facility] 10/21/2013 12:21:55 Influenza, live, trivalent, intranasal 7 completed Not Available [facility] 10/21/2013 12:21:55 Influenza, live, trivalent, intranasal 7 completed Not Available [facility] 10/21/2013 12:21:55 Influenza, live, trivalent, intranasal 8 completed Not Available [facility] 10/21/2013 12:21:55 Influenza, live, trivalent, intranasal 0 completed Not Available [facility] 10/21/2013 12:21:55 Influenza, live, trivalent, intranasal 3 completed Not Available [facility] 10/21/2013 12:21:55 pneumococcal conjugate PCV 7 2 completed Not Available [facility] 10/21/2013 12:21:55 pneumococcal conjugate PCV 7 3 completed Not Available [facility] 10/21/2013 12:21:55 pneumococcal conjugate PCV 7 3 completed Not Available [facility] 10/21/2013 12:21:55 pneumococcal conjugate PCV 7 4 completed Not Available [facility] 10/21/2013 12:21:55 DTaP, 5 pertussis antigens 2 completed Not Available [facility] 10/21/2013 12:21:55 DTaP, 5 pertussis antigens 3 completed Not Available [facility] 10/21/2013 12:21:55 DTaP, 5 pertussis antigens 3 completed Not Available [facility] 10/21/2013 12:21:55 DTaP, 5 pertussis antigens 4 completed Not Available [facility] 10/21/2013 12:21:55 DTaP, 5 pertussis antigens 7 completed Not Available [facility] 10/21/2013 12:21:55 MMR 4 completed Not Available [facility] 10/21/2013 12:21:55 MMR 7 completed Not Available [facility] 10/21/2013 12:21:55 IPV 3 completed Not Available [facility] 10/21/2013 12:21:55 IPV 3 completed Not Available [facility] 10/21/2013 12:21:55 IPV 3 completed Not Available [facility] 10/21/2013 12:21:56 IPV 7 completed Not Available [facility] 10/21/2013 12:21:56 Tdap 4 completed Not Available [facility] 10/21/2013 12:21:56 varicella 3 completed Not Available [facility] 10/21/2013 12:21:56 varicella 6 completed Not Available [facility] 10/21/2013 12:21:56 meningococcal MCV4P 4 completed Not Available [facility] 10/21/2013 12:21:56 Hep B, adolescent or pediatric 3 completed Not Available [facility] 10/21/2013 12:21:56 Hep B, adolescent or pediatric 3 completed Not Available [facility] 10/21/2013 12:21:56 Hep B, adolescent or pediatric 3 completed Not Available [facility] 10/21/2013 12:21:56 Influenza, split virus, quadrivalent, PF 0 completed MARSHA Gagnon - .[facility] 01/11/2020 12:32:06 Tdap 1 completed WENDY Black, MARSHA - .[facility] 08/31/2020 15:11:19 meningococcal B, recombinant 1 completed WENDY Black, MARSHA - .[facility] 08/31/2020 15:11:20 HPV9 6 completed Not Available [facility] 03/20/2019 04:44:51 Influenza, live, quadrivalent, intranasal 6 completed Not Available [facility] 03/20/2019 04:53:56 HPV9 6 completed Not Available [facility] 03/20/2019 05:18:27 HPV9 6 completed Not Available [facility] 03/20/2019 04:57:37 COVID-19, mRNA, LNP-S, PF, 100 mcg/0.5mL dose or 50 mcg/0.25mL dose 1 completed MARSHA Romeo - .[facility] 07/23/2021 15:00:42 COVID-19, mRNA, LNP-S, PF, 100 mcg/0.5mL dose or 50 mcg/0.25mL dose 1 completed MARSHA Romeo - .[facility] 07/23/2021 15:00:50 COVID-19, mRNA, LNP-S, PF, 100 mcg/0.5mL dose or 50 mcg/0.25mL dose 1 completed MARSHA Romeo - .[facility] 07/23/2021 15:00:59 Influenza, split virus, quadrivalent, PF 7 completed Not Available [facility] 03/20/2019 02:51:19 Influenza, live, quadrivalent, intranasal 4 completed Not Available [facility] 03/20/2019 02:55:38 Influenza, split virus, quadrivalent, PF 7 completed Not Available [facility] 03/20/2019 04:21:22 influenza nasal, unspecified formulation 2 completed Nelida Shen MD 1 [place], [address] - [facility] 03/13/2022 13:17:17 Influenza, split virus, quadrivalent, PF 8 completed Not Available [facility] 03/20/2019 03:05:54 Past Encounters Encounter ID Performer Location Encounter Start Date Encounter Closed Date Diagnosis/Indication Diagnosis SNOMED-CT Code Diagnosis ICD10 Code Diagnosis Note [id number] [facility] [place] [address] 12/28/2013 14:37:34 12/28/2013 16:41:44 Viral syndrome 634375254 Acute pharyngitis 782334083 Anxiety 10258810 Counseling 661690172 [id number] [facility] [place] [address] 03/24/2014 14:34:19 03/24/2014 15:44:15 Acute pharyngitis 931208505 Acute uppe r respiratory infection 37113005 [id number] Alexys Friend [facility] [place] [address] 11/04/2014 11:08:00 11/08/2014 13:22:58 Thumb injury 406877081 [id number] Nelida Shen MD [facility] [place] [address] 04/04/2015 09:08:46 04/04/2015 15:01:43 Well child 066121658 Z00.129 Depression screening 171 810622 Z13.89 Administra tion of viral vaccine 54694606 Z23 Administra tion of influenza vaccine 80266955 Z23 No egg allergy, no asthma, no immunocomp romised contacts Anxiety 95688530 F41.1 Fracture of fibula 47827 007 S82.831S Counseling 023681024 Z71 .89 Safety education 4774249 04 Z71.89 Exercises education, guidance, and counseling 747709335 Z71.89 Dietary ma nagement surveillance 720578985 Z71.3 Substance abuse counseling 612599815 Z71.51 [id number] Nelida Shen MD [facility] [place] [address] 06/07/2015 14:27:39 06/13/2015 10:40:38 Viral syndrome 762904997 B34.9 Cervical lymphadenitis 6682511 I88.9 Acute pharyngitis 153962 003 J02.9 Counseling 496139816 Z71 .89 [id number] Nelida Shen MD [facility] [place] [address] 07/04/2015 14:31:11 07/04/2015 15:36:12 Anxiety 23492781 F41.1 Cervical lymphadenitis 1539041 I88.9 Follow-up encounter 3909 95320 Z09 Resolved cervical lymphadeni tis Administra tion of viral vaccine 36287769 Z23 [id number] Nelida Shen MD [facility] [place] [address] 11/14/2015 14:27:50 11/14/2015 14:46:06 Active or passive immunization 141655688 Z23 [id number] Nelida Shen MD [address] [address] 04/04/2016 09:10:37 04/04/2016 15:21:05 Well child 674237933 Z00.121 Depression screening 171 405066 Z13.89 Anxiety 85894708 F41.1 Seasonal allergy 5907159 04 J30.2 Vitamin D deficiency 347 42439 E55.9 Influenza vaccine needed 8731530105 106 Z23 Failure to gain weight 95840577 R62.51 Safety education 6047202 04 Z71.89 Dietary ma nagement surveillance 011487564 Z71.3 Counseling 478007153 Z71 .89 Exercises education, guidance, and counseling 409102053 Z71.89 Substance abuse counseling 832614431 Z71.6 [id number] Nelida Shen MD [address] [address] 08/05/2016 11:05:25 08/10/2016 09:48:09 Avoidant restrictive food intake disorder 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 F50.81 Anxiety 92590277 F41.1 Failure to gain weight 93069215 R62.51 Follow-up visit 53089452 9 Z09 Wt up 3 lbs in past 4m, improving ORFID and anxiety with current medication and therapy Counseling 093034050 Z71 .89 [id number] Nelida Shen MD [address] [place] [address] 11/19/2016 15:19:18 11/25/2016 15:14:05 Concussion injury of brain 056552368 S06.0X0A Counseling 972535214 Z71 .89 Anxiety 32945225 F41.1 [id number] Nelida Shen MD [address] [address] 11/25/2016 16:21:47 11/27/2016 12:47:24 Concussion injury of brain 192604598 S06.0X0D Resolved [place] Avoidant r estrictive food intake disorder 275757998 F50.81 Follow-up visit 19943800 9 Z09 Wt up 7 lbs in past 4m, improving ORFID and improving anxiety with current medication and therapy Counseling 510992108 Z71 .89 Administra tion of influenza vaccine 82650317 Z23 Anxiety 04518191 F41.1 [id number] Nelida Shen MD [facility] [place] [address] 04/09/2017 16:02:04 04/11/2017 11:39:09 Well child 953934920 Z00.129 Anxiety 07251947 F41.1 Avoidant r estrictive food intake disorder 297534990 F50.81 Vitamin D deficiency 347 54034 E55.9 Safety education 7493774 04 Z71.89 Dietary ma nagement surveillance 359509118 Z71.3 Counseling 756720617 Z71 .89 Exercises education, guidance, and counseling 993393208 Z71.89 Substance abuse counseling 587237759 Z71.6 [id number] Nelida Shen MD [facility] [place] [address] 11/11/2017 15:01:59 11/11/2017 16:46:28 Anxiety 45274659 F41.1 Avoidant r estrictive food intake disorder 794456126 F50.81 Vitamin D deficiency 347 28113 E55.9 Screening for disorder 967281897 Z13.9 Counseling 641083646 Z71 .89 Dietary ma nagement surveillance 203450386 Z71.3 No change in weight and height inpast 7 months Administra tion of influenza vaccine 03173675 Z23 [id number] Nelida Shen MD [facility] [place] [address] 12/09/2017 09:19:19 12/09/2017 10:38:25 Concussion injury of brain 646609857 S06.0X0A -SCAT score of 19 -note for school, no sports or PE, restricted academics -will be seen in 2 days' time at [facility] concussion clinic. [id number] Nelida Shen MD [facility] [place] [address] 05/11/2019 15:38:05 05/11/2019 22:32:18 Well child 097459073 Z00.129 Anxiety 28276570 F41.1 Safety education 3344760 04 Z71.89 Dietary ma nagement surveillance 263498947 Z71.3 Exercises education, guidance, and counseling 246898059 Z71.89 Substance abuse counseling 708896939 Z71.6 Administra tion of bacterial vaccine 149212582 Z23 [id number] Nelida Shen MD [facility] [address] [place] [address] 08/31/2020 11:05:47 08/31/2020 13:40:26 Adult health examination 244518881 Z00.00 Administra tion of bacterial vaccine 945960396 Z23 Administra tion of diphtheria, pertussis, and tetanus vaccine 292191408 Z23 Safety education 8300490 04 Z71.89 Dietary ma nagement surveillance 237930944 Z71.3 Exercises education, guidance, and counseling 002150887 Z71.89 Substance abuse counseling 000702637 Z71.6 Counseling 034048187 Z71 .89 [id number] Nyasia Vela MD [facility] [place] [address] 07/23/2021 14:39:35 07/24/2021 13:16:16 Bleeding from nose 161921518 R04.0 Injury of nose 91862686 S09.92XA [id number] Nyasia Vela MD [facility] [place] [address] 07/25/2021 14:40:19 07/25/2021 15:07:00 Blepharitis 04655720 H01.9 [id number] Nelida Shen MD [facility] [address] [place] [address] 03/13/2022 12:43:30 03/13/2022 13:45:12 Adult health examination 559659489 Z00.00 Generalize d anxiety disorder 06675627 F41.1 Avoidant r estrictive food intake disorder 498553665 F50.81 Hypermetropia 94186788 H 52.03 Safety education 8795223 04 Z71.89 Dietary ma nagement surveillance 024299857 Z71.3 Exercises education, guidance, and counseling 335719374 Z71.89 Substance abuse counseling 948207188 Z71.6 Health Concerns Section Related Observation LastModified by Organization Detai ls LastModified Time None Recorded Concern Status LastModified by Organization Details LastModified Time None Recorded Advance Directives Directive None Recorded Payers Encounter Date Sequence Insurance Name Policy Number Policy Oakley Covered Member ID Oakley Member ID Guarantor Name 05/11/2019 1 [employer] - AHF - OPEN ACCESS - NAP (PPO) [id number] Maged Julius [id number] Jessica Madrid 08/31/2020 1 [employer] - AHF - OPEN ACCESS - NAP (PPO) [id number] Maged Julius [id number] Jessica Madrid 07/23/2021 1 [employer] - CHOICE (POS II) [id number] Maged Julius [id number] Jessica Madrid 07/25/2021 1 [employer] - CHOICE (POS II) [id number] Maged Julius [id number] Jessica Madrid 03/13/2022 1 [employer] - CHOICE (POS II) [id number] Maged Julius [id number] Jessicakonstantin Madrid Notes Date Note Type Note Provider Name and Address Organization Details Recorded Time 05/11/2019 text/html Here for check upUpdated problem list.No additional concerns.Reviewed confidentiality. Nelida Shen MD [address] [place], [address] [place] [address] - .[facility] 05/11/2019 18:42:15 08/31/2020 text/html Here for check u p, mother outsideUpdated problem list.No additional concerns.Reviewed confidentiality. Nelida Shen MD [address] [place], [address], [facility] - .[facility] 08/31/2020 13:36:27 07/23/2021 text/html 20-year-old pres ents with complaints of epistaxis. Symptoms started in November of 2020 after she had an incident while riding a horse which she hit her face on the horses neck. Bleeding can happen from both the right and left nostrils. Since improved to where she has had about 13 episodes. Last episode was right-sided on July 19. Nyasia Vela MD [address] [place], [id number], [facility] - [facility] 07/23/2021 16:18:31 07/25/2021 text/html Patient comes in with the acute onset of lower lid swelling she was cauterized right septal area 2 days ago with silver nitrate. She denies touching her nose and then touching the eye. Nyasia Vela MD [address] [place], [id number], [facility] - .[facility] 07/25/2021 15:04:05 03/13/2022 text/html Here for annual check up:Updated problem list.Updated family history, social history and past medical history.No additional concerns.Reviewed confidentiality. Nelida Shen MD [address] [place], [id number], [facility] - .[facility] 03/13/2022 13:23:47 OBGyn Episode No OBEpisode recorded.
[2024-06-07 19:38] LABS: Alanine Aminotransferase 17 U/L (0-31); Albumin Level 4.5 g/dL (3.5-5.0); Alkaline Phosphatase 54 U/L (39-117); Anion Gap 13 (12-20); Aspartate Amino Transferase 34 U/L (5-31); Bilirubin Total 0.5 mg/dL (0.0-1.0); Blood Urea Nitrogen 12 mg/dL (9-16); Calcium 9.4 mg/dL (8.4-10.2); Carbon Dioxide 24 mmol/L (22-29); Chloride 109 mmol/L (96-108); Creatinine Clr Calc Pharmacy 102.5; Estimated Glomerular Filt Rate > 60; Glucose Random 121 mg/dL (60-115); HCG Quantitative < 2 mIU/mL; Potassium 4.3 mmol/L (3.3-5.1); Sodium 142 mmol/L (135-145); Total Protein 7.5 g/dL (6.5-8.0)
[2024-06-07] MEDS: iohexoL 350 MG/ML 100 ML INFUS..BTL 85 ML IV (20:02)
[2024-06-07] MEDS: 0.9 % Sodium Chloride 1,000 ML 999 ML IV (21:24)
--- NOTE | 2024-06-07 21:26 | PC.NURSE ---
Patient noted to have a ruptured spleen by cat scan. Plan to transfer to [facility] as a trauma. Bedside U/S performed
--- NOTE | 2024-06-07 21:35 | PC.NURSE ---
Report given to [facility]
--- NOTE | 2024-06-11 11:02 | PC.NURSE ---
Late entry: I spoke with the primary nurse and this patient was transferred to [facility] at 2234 on 06/07. The patients RBC unit was still infusing at the time of her transfer. An entry in the TAR was made to reflect this.
== END 2024-06-07 22:35 | disposition short-term general hospital (02) ==
PROVIDERS: Physician Assistant; Emergency Provider Internal Medicine
DX: S36.031A Moderate laceration of spleen, initial encounter (principal); R51.9 Headache, unspecified; M54.2 Cervicalgia; R10.2 Pelvic and perineal pain; R10.12 Left upper quadrant pain; R07.89 Other chest pain; V80.010A Animal-rider injured by fall from or being thrown from horse in noncollision accident, initial encounter; Y93.9 Activity, unspecified; Y92.9 Unspecified place or not applicable; Y99.8 Other external cause status; Z79.899 Other long term (current) drug therapy
CPT/HCPCS: 36415; 36430; 70450; 71260; 72125; 74177; 80053; 84702; 85025; 86850; 86900; 86901; 86920; 99285; P9016; Q9967

== ENCOUNTER → 2024-06-07 18:50 | Outpatient (BNV) | payer OTHER, SELFPAY | PROVIDERS: Emergency Provider Internal Medicine; Visit Provider Radiology Diagnostic Radiology | DX: R10.9 Unspecified abdominal pain (principal); S39.91XA Unspecified injury of abdomen, initial encounter; S09.90XA Unspecified injury of head, initial encounter; V80.010A Animal-rider injured by fall from or being thrown from horse in noncollision accident, initial encounter | CPT/HCPCS: 70450; 71260; 72125; 74177 ==